=== PATIENT | female | born 1980 | race Caucasian/White ===

== ENCOUNTER 2016-05-01 16:10 | Outpatient (CLI) | payer BC ==
[2014-05-25 19:09] VITALS: BP 172/100
== END 2016-05-01 16:11 ==
LOC: LAB 16:10
PROVIDERS: ATTEND Family Medicine
DX: E03.9 Hypothyroidism, unspecified (principal)
CPT/HCPCS: 36415; 84443

== ENCOUNTER 2016-06-04 16:06 | Emergency (ER) | payer BC ==
[2016-06-04] MEDS ORDERED: KETOROLAC TROMETHAMINE 60 MG/2 ML VIAL IM ONE (16:20)
--- NOTE | 2016-06-04 16:25 | ED Physician Documentation ---
Abdominal Pain - HISTORIAN Historian: patient - HPI Stated Complaint: LLQ pain, right back pain Chief Complaint: Abdominal Pain Additonal Information: 35 yo F here for L sided abdominal pain x3 days. Stats pain is cramping with episodes of sharp pain. Now developed R low back pain, thinks compensatory 2/2 antalgic gait. States L abdomen pain radiates into L lateral thigh and below the knee. H/O PCOS, no other medical probs. No recent illness, fever, chills, n/ v. No change in BM. Urination does increase pain. Does not think she has hematuria, but difficult to tell as she is currently on her period. Appetite is normal. All other systems reviewed and negative except per HPI. Onset: days ago (2) Context: denies: out of country travel Severity: moderate Quality: cramping, sharp Associated Symptoms: denies: fever, chills, nausea, vomiting, coffee ground emesis, bloody emesis, diarrhea, bloody stools Exacerbated by: other (urination, twisting) Relieved by: nothing - ROS CONST: no problems GI/: other (dysuria, abdominal pain) CVS/RESP: none EYES/ENT: none MS/SKIN/LYMPH: none NEURO/PSYCH: none - SOCIAL HX Smoking History: non-smoker Alcohol Use: none Drug Use: none - FAMILY HX Family History: none - PAST HX Past History: other (PCOS) Ischemic Bowel Risk Factors: none Other History: none Surgeries/Procedures: none Immunizations: UTD Home Medications: Ambulatory Orders Medication Instructions Recorded Metformin HCl [Glucophage] 500 mg PO BID 06/04/16 Allergies/Adverse Reactions: Allergies Allergy/AdvReac Type Severity Reaction Status Date / Time tramadol Allergy Verified 06/04/16 16:20 - VITAL SIGNS Vital Signs: Vital Signs Temp Pulse Resp BP Pulse Ox 98.2 F 89 16 136/78 97 06/04/16 17:30 06/04/16 17:30 06/04/16 17:30 06/04/16 17:30 06/04/16 17:30 - REVIEWED ASSESSMENTS Nursing Assessment Reviewed: Yes Vitals Reviewed: Yes ED Results Lab/Radiology - Lab Results Lab Results: Lab Results 06/04/16 16:20 Urine Color Yellow (YELLOW) Urine Appearance Clear (CLEAR) Urine pH 6.0 (5.0 - 8.0) Ur Specific [place] 1.025 (1.010-1.030) Urine Protein Trace mg/dL H mg/dL (NEGATIVE) Urine Ketones Negative mg/dL mg/dL (NEGATIVE) Urine Occult Blood 3+ H (NEGATIVE) Urine Nitrite Negative (NEGATIVE) Urine Bilirubin Negative (NEGATIVE) Urine Urobilinogen 0.2 Eu Eu (0.2-1.0) Ur Leukocyte Esterase Negative (NEGATIVE) Urine Glucose Negative mg/dL mg/dL (NEGATIVE) Urine HCG, Qual Negative (NEGATIVE) - Orders Orders: ED Orders Category Date Time Status CT ABDOMEN ONLY S [CT ABD W/O CONTRAST] Stat Exams 06/04/16 16:32 Completed UA MACRO DIP ONLY Stat Lab 06/04/16 16:20 Completed URINE HCG Stat Lab 06/04/16 16:20 Completed Ketorolac Tromethamine [Toradol] Med 06/04/16 16:20 Discontinued 60 mg IM NOW ONE Abdominal Pain Physical Exam - Physical Exam General Appearance: no acute distress, alert EENT: ENT inspection normal, pharynx normal, no signs of dehydration NECK: normal inspection. No: lymphadenopathy, stiff neck RESPIRATORY: no resp distress, chest non-tender, breath sounds normal CVS: reg rate & rhythm, heart sounds normal, equal pulses, no murmur ABDOMEN: soft, no organomegaly, normal bowel sounds, no abdominal bruit, no distension, tenderness (LLQ, no rebound or guarding. ), other (Morbid obesity) SKIN: warm/dry, normal color EXTREMITIES: non-tender NEURO: oriented X3, CN's nml as tested, motor nml, sensation nml. No: weakness/ sensory loss, asymmetric reflexes Vital Signs: Vital Signs Temp Pulse Resp BP Pulse Ox 98.2 F 89 16 136/78 97 06/04/16 17:30 06/04/16 17:30 06/04/16 17:30 06/04/16 17:30 06/04/16 17:30 Discharge Clincal Impression: Abdominal pain Qualifiers: Abdominal location: left lower quadrant Qualified Code(s): R10.32 - Left lower quadrant pain Referrals: Chiara Joseph MD [Primary Care Provider] - 2 Days Home Medications: Ambulatory Orders Metformin HCl [Glucophage] 500 mg PO BID 06/04/16 Comments: exam non surgical. UA with blood, but on her period, no infection. Hcg neg. CT scan negative for acute. Condition: Good Disposition: HOME, SELF-CARE Decision to Admit: NO Date of Decison to Admit: 06/04/16 Decision Time: 17:21
[2016-06-04 16:51] LABS: APPEARANCE,URINE CLEAR (CLEAR); COLOR,URINE YELLOW (YELLOW); OCCULT BLOOD,URINE 3+ (NEGATIVE); UROBILINOGEN URINE 0.2 Eu (0.2-1.0)
[2016-06-04 17:43] VITALS: BP 136/78
--- NOTE | 2016-06-04 19:12 | Diagnostic Imaging Report ---
SARA MAGUIRE [facility] [id number] [facility] [address] [place], [place]. [address] Report Submission Date: Jun 04, 2016 5:02:46 PM REGIONAL DIRECTOR Patient Study Name: TREVOR SALGADO Date: Jun 04, 2016 4:43:32 PM REGIONAL DIRECTOR Modality Type: CT\SR Gender: F Description: CT ABD & PELVIS W/O CO : 76 Institution: [facility] Physician: SARA MAGUIRE CT of the abdomen and pelvis without contrast Clinical history: Left-sided abdominal pain radiating to the back. Technique: CT of the abdomen and pelvis is performed without oral or intravenous administration of contrast. Sagittal and coronal reconstructions are performed by the technologist. Findings: The visualized lung bases are clear. The liver and spleen demonstrate normal attenuation without focal defect. The gallbladder is surgically absent. There is no pancreatic or adrenal abnormality. Intrarenal calculus is demonstrated in the upper pole of the left kidney. There is no evident ureteral or bladder calculus. There is no hydronephrosis. Retroaortic left renal vein is incidentally noted. Small umbilical hernia is present containing only fat. The appendix is visualized and is within normal limits. The structures related to the gastrointestinal tract are unremarkable. Small ovarian follicles are demonstrated. The uterus is unremarkable. Impression: 1. Left intrarenal calculus. 2. Small umbilical hernia containing only fat. 3. Negative appendix. 4. Postoperative changes. Electronically signed on Jun 04, 2016 5:02:46 PM REGIONAL DIRECTOR by: Ranjeet HERNADEZ
== END 2016-06-04 17:30 | disposition home or self-care (01) ==
LOC: ED 16:06
DX: R10.32 Left lower quadrant pain (principal)
CPT/HCPCS: 74150; 81002; 81025; J1885; 96372; 99283; 99284

== ENCOUNTER 2016-08-04 04:29 | Emergency (ER) | payer BC, OTHER ==
[2016-08-04] MEDS ORDERED: ONDANSETRON HCL/PF 4 MG/ 2ML VIAL IVP ONE (05:19)
[2016-08-04] MEDS ORDERED: ONDANSETRON HCL/PF 4 MG/ 2ML VIAL ONE (05:20)
--- NOTE | 2016-08-04 05:22 | ED Physician Documentation ---
Abdominal Pain - HISTORIAN Historian: patient - HPI Stated Complaint: LLQ pain Chief Complaint: Abdominal Pain Additonal Information: Awakened at 0300 with LLQ pain "twisting" and sharp. Pain made her feel she needed to urinate, but didn't get better when she had. She vomited because pain was so severe. Last normal bowel movement yesterday. Onset: minutes Context: denies: out of country travel Quality: sharp, stabbing Associated Symptoms: denies: fever Exacerbated by: nothing Relieved by: nothing - ROS CONST: no problems - SOCIAL HX Smoking History: non-smoker - FAMILY HX Family History: no significant history - PAST HX Past History: other (PCOS, on med for "mood stabilization") Surgeries/Procedures: cholecystectomy Home Medications: Ambulatory Orders Medication Instructions Recorded Metformin HCl [Glucophage] 500 mg PO BID 06/04/16 Nitrofurantoin Monohyd/M-Cryst 100 mg PO Q12 #14 capsule 08/04/16 [Macrobid] Allergies/Adverse Reactions: Allergies Allergy/AdvReac Type Severity Reaction Status Date / Time tramadol Allergy Verified 08/04/16 04:38 - VITAL SIGNS Vital Signs: Vital Signs Temp Pulse Resp BP Pulse Ox 98.0 F 79 16 156/97 99 08/04/16 04:35 08/04/16 04:35 08/04/16 04:35 08/04/16 04:35 08/04/16 04:35 - REVIEWED ASSESSMENTS Nursing Assessment Reviewed: Yes Vitals Reviewed: Yes Progress - Progress Progress: HISTORY: 35-year-old female with left lower quadrant abdominal pain. COMPARISON: None available. TECHNIQUE: Supine and upright views of the abdomen were performed. FINDINGS: No abnormal bowel dilatation. Gas is present in the distal colon. The upright film does not demonstrate pathologic-appearing air-fluid levels or free air under the diaphragm. No abnormal calcifications are identified overlying the urinary tract. There are surgical clips in the right upper quadrant, consistent with prior cholecystectomy. There is mild to moderate lumbar degenerative disc disease. There is mild joint space narrowing of the hips. IMPRESSION: No evidence of bowel obstruction. Electronically signed on Aug 04, 2016 5:45:43 AM CDT by: Nomi Benedict ED Results Lab/Radiology - Lab Results Lab Results: Lab Results 08/04/16 05:20 WBC 8.00 K/ul K/ul (4.00-12.00) RBC 4.60 M/ul M/ul (3.90-5.20) Hgb 11.7 g/dL L g/dL (12.0-16.0) Hct 37.9 % % (34.5-46.5) MCV 82.5 fl fl (80.0-100.0) MCH 25.4 pg L pg (28.0-34.0) MCHC 30.8 g/dL g/dL (30.0-36.0) RDW 15.3 % H % (11.3-14.3) Plt Count 385 K/mm3 K/mm3 (130-400) Neut % (Auto) 67.4 % % (39.0-79.0) Lymph % (Auto) 23.4 % % (16.0-50.0) [place] % (Auto) 4.2 % % (0.0-11.0) Eos % (Auto) 2.6 % % (0.0-6.8) Baso % (Auto) 0.8 (0.0-1.5) Neut # 5.4 # k/uL # k/uL (1.4-7.7) Lymph # 1.9 # k/uL # k/uL (0.6-4.0) [place] # 0.3 # k/uL # k/uL (0.0-0.9) Eos # 0.2 # k/uL # k/uL (0.0-0.6) Baso # 0.1 # k/uL # k/uL (0.0-0.5) Reactive Lymphs % 1.7 % % (0.0-5.0) Reactive Lymphs # 0.1 # k/uL # k/uL (0.0-0.8) - Orders Orders: ED Orders Category Date Time Status Place Saline Lock/IV Now Care 08/04/16 05:19 Active ABDOMEN COMPLETE [RAD] Stat Exams 08/04/16 Taken AMYLASE Routine Lab 08/04/16 05:20 Received CBC/PLATELET/DIFF Routine Lab 08/04/16 05:20 Completed CMP Routine Lab 08/04/16 05:20 Received URINE HCG Stat Lab 08/04/16 Uncollected Ketorolac Tromethamine [Toradol] Med 08/04/16 05:24 Discontinued 30 mg IVP NOW ONE Nitrofurantoin Monohyd/M-Cryst [Macrobid] Med 08/04/16 05:42 Once 100 mg PO NOW ONE Ondansetron HCl/Pf [Zofran 4 mg/2 ml] Med 08/04/16 05:20 Discontinued 4 mg .ROUTE .STK-MED ONE Ondansetron HCl/Pf [Zofran 4 mg/2 ml] Med 08/04/16 05:19 Discontinued 4 mg IVP NOW ONE Abdominal Pain Physical Exam - Physical Exam General Appearance: alert, mild distress, other (obese) EENT: eye inspection normal, ENT inspection normal NECK: normal inspection, supple RESPIRATORY: no resp distress, breath sounds normal CVS: reg rate & rhythm, heart sounds normal, no murmur ABDOMEN: soft, normal bowel sounds, no distension, other (grimaces equally throughout abd exam) RECTAL: deferred BACK: normal inspection, no CVA tenderness SKIN: warm/dry, normal color EXTREMITIES: no evidence of injury, no edema NEURO: CN's nml as tested, motor nml, sensation nml Vital Signs: Vital Signs Temp Pulse Resp BP Pulse Ox 98.0 F 79 16 156/97 99 08/04/16 04:35 08/04/16 04:35 08/04/16 04:35 08/04/16 04:35 08/04/16 04:35 Discharge Clincal Impression: urinary tract infection Prescriptions: Nitrofurantoin Monohyd/M-Cryst [Macrobid] 100 mg PO Q12 #14 capsule Additional Instructions: Take all the antibiotics as prescribed until they are completely gone. See your provider if your pain is not better in 24-36 hours. Drink plenty of water. Home Medications: Ambulatory Orders Metformin HCl [Glucophage] 500 mg PO BID 06/04/16 Nitrofurantoin Monohyd/M-Cryst [Macrobid] 100 mg PO Q12 #14 capsule 08/04/16 Condition: Good Disposition: 01 HOME, SELF-CARE Decision to Admit: NO Decision Time: 05:48
[2016-08-04] MEDS ORDERED: KETOROLAC TROMETHAMINE 30 MG/1ML VIAL IVP ONE (05:24)
[2016-08-04 05:33] LABS: BASOPHILS % 0.8 (0.0-1.5); EOSINOPHILS % 2.6 % (0.0-6.8); MEAN CORPUSCULAR HEMOGLOBIN 25.4 pg (28.0-34.0); MEAN CORPUSCULAR VOLUME 82.5 fl (80.0-100.0); MONOCYTES % 4.2 % (0.0-11.0); NEUTROPHILS # 5.4 # k/uL (1.4-7.7)
[2016-08-04] MEDS ORDERED: NITROFURANTOIN 100 MG CAPSULE PO ONE (05:42)
[2016-08-04 05:52] LABS: APPEARANCE,URINE CLOUDY (CLEAR); COLOR,URINE YELLOW (YELLOW); OCCULT BLOOD,URINE 2+ (NEGATIVE); URINE HCG NEGATIVE (NEGATIVE); UROBILINOGEN URINE 0.2 Eu (0.2-1.0)
[2016-08-04 05:58] LABS: eGFR (African) > 60; eGFR (Non-African) > 60
[2016-08-04 06:07] VITALS: BP 142/92
--- NOTE | 2016-08-04 07:00 | Diagnostic Imaging Report ---
FELI SANCHEZ [facility] [address] [facility] [address] [place] [address]. [address] Report Submission Date: Aug 04, 2016 5:45:43 AM CDT Patient Study Name: TREVOR SALGADO Date: Aug 04, 2016 5:29:07 AM CDT Modality Type: CR Gender: F Description: ABDOMEN : 76 Institution: [facility] Physician: FELI SANCHEZ HISTORY: 35-year-old female with left lower quadrant abdominal pain. COMPARISON: None available. TECHNIQUE: Supine and upright views of the abdomen were performed. FINDINGS: No abnormal bowel dilatation. Gas is present in the distal colon. The upright film does not demonstrate pathologic-appearing air-fluid levels or free air under the diaphragm. No abnormal calcifications are identified overlying the urinary tract. There are surgical clips in the right upper quadrant, consistent with prior cholecystectomy. There is mild to moderate lumbar degenerative disc disease. There is mild joint space narrowing of the hips. IMPRESSION: No evidence of bowel obstruction. Electronically signed on Aug 04, 2016 5:45:43 AM CDT by: Nomi HERNADEZ
== END 2016-08-04 06:00 | disposition home or self-care (01) ==
LOC: ED 04:29
DX: N39.0 Urinary tract infection, site not specified (principal)
CPT/HCPCS: 74020; 80053; 81002; 81025; 82150; 85025; 87086; J1885; J2405; 96374; 96375; 99283; S1016

== ENCOUNTER 2016-08-05 13:25 | Emergency (ER) | payer BC ==
--- NOTE | 2016-08-05 14:00 | ED Physician Documentation ---
General Adult - HISTORIAN Historian: patient - HPI Stated Complaint: UROGEN Chief Complaint: Abdominal Pain Timing: still present, worse Severity: moderate Further Comments: yes (Patient states that she started to have some LLQ abd pain. Was seen i [facility] ED and felt to have a UTI. Was started on MacroBid. Since starting the antinbiotic she has started to have some nausea and vomiting. Not able to keep anything down. Feels full. Has not been having a lot of urinary frequency or urgency, is having some mild dysuria. Has had some chills but no fever. Denies chance of .) - ROS CONST: chills. denies: fever - PAST HX Past History: other (polycystic ovarian disorder) Other History: none Surgeries/Procedures: cholecystectomy (2002) Immunizations: referred to PCP Allergies/Adverse Reactions: Allergies Allergy/AdvReac Type Severity Reaction Status Date / Time tramadol Allergy Verified 08/05/16 13:42 Home Medications: Ambulatory Orders Medication Instructions Recorded Metformin HCl [Glucophage] 500 mg PO BID 06/04/16 Nitrofurantoin Monohyd/M-Cryst 100 mg PO Q12 #14 capsule 08/04/16 [Macrobid] HYDROcodone /APAP 5/325 [[place] 1 each PO Q4 #15 tablet 08/05/16 5/325] Tamsulosin HCl [Flomax] 0.4 mg PO [id number] #7 cap.er.24h 08/05/16 - SOCIAL HX Smoking History: non-smoker Alcohol Use: none Drug Use: none - FAMILY HX Family History: No - VITAL SIGNS Vital Signs: Vital Signs Temp Pulse Resp BP Pulse Ox 96.6 F L 93 H 20 137/86 99 08/05/16 13:34 08/05/16 13:34 08/05/16 13:34 08/05/16 13:34 08/05/16 13:34 - REVIEWED ASSESSMENTS Nursing Assessment Reviewed: Yes Vitals Reviewed: Yes ED Results Lab/Radiology - Orders Orders: ED Orders Category Date Time Status URINALYSIS Routine Lab 08/05/16 Uncollected General Adult Physical Exam - PHYSICAL EXAM GENERAL APPEARANCE: mild distress EENT: eye inspection normal, ENT inspection normal, pharynx normal, no signs of dehydration NECK: normal inspection, thyroid normal, supple. No: lymphadenopathy RESPIRATORY: no resp distress, chest non-tender, breath sounds normal. No: wheezes, rales, rhonchi CVS: reg rate & rhythm, heart sounds normal, equal pulses, no murmur, no gallop ABDOMEN: soft (obese), no organomegaly, no distension, tenderness (most marked in LUQ, but some in LLQ also), decreased BS. No: rebound, distended, guarding SKIN: warm/dry, normal color EXTREMITIES: non-tender, normal range of motion NEURO: oriented X3, mood/affect nml, cognition normal Discharge Clincal Impression: Kidney stone on left side Referrals: Chiara Joseph MD [Primary Care Provider] - 2 Days Additional Instructions: Drink a lot of fluids. Take Tamsulosin once a day for one week. Strain your urine for the next 4-5 days. If you develop any fever or chills to see your primary care provider to return to the ED. Home Medications: Ambulatory Orders Metformin HCl [Glucophage] 500 mg PO BID 06/04/16 Nitrofurantoin Monohyd/M-Cryst [Macrobid] 100 mg PO Q12 #14 capsule 08/04/16 HYDROcodone /APAP 5/325 [[place] 5/325] 1 each PO Q4 #15 tablet 08/05/16 Tamsulosin HCl [Flomax] 0.4 mg PO [id number] #7 cap.er.24h 08/05/16 Condition: Stable Disposition: 01 HOME, SELF-CARE Decision to Admit: NO Date of Decison to Admit: 08/05/16 Decision Time: 16:43
[2016-08-05] MEDS ORDERED: ONDANSETRON HCL/PF 4 MG/ 2ML VIAL IVP ONE (14:08)
[2016-08-05] MEDS ORDERED: KETOROLAC TROMETHAMINE 30 MG/1ML VIAL IVP ONE (14:09)
[2016-08-05] MEDS ORDERED: 0.9 % SODIUM CHLORIDE 1,000 ML IV ONE (14:12)
[2016-08-05 14:15] LABS: APPEARANCE,URINE Slightly Cloudy (CLEAR); COLOR,URINE Yellow (YELLOW); OCCULT BLOOD,URINE 2+ (NEGATIVE); UROBILINOGEN URINE 0.2 Eu (0.2-1.0)
[2016-08-05 14:22] LABS: AMORPHOUS SEDIMENT,UR FEW (NEGATIVE)
[2016-08-05] MEDS ORDERED: 0.9 % SODIUM CHLORIDE 1,000 ML IV SCH (14:30)
[2016-08-05 14:31] LABS: BASOPHILS % 0.4 (0.0-1.5); EOSINOPHILS % 0.5 % (0.0-6.8); MEAN CORPUSCULAR HEMOGLOBIN 25.5 pg (28.0-34.0); MEAN CORPUSCULAR VOLUME 81.4 fl (80.0-100.0); MONOCYTES % 3.8 % (0.0-11.0); NEUTROPHILS # 8.5 # k/uL (1.4-7.7)
[2016-08-05 14:47] LABS: eGFR (African) > 60; eGFR (Non-African) > 60
[2016-08-05 15:45] VITALS: BP 122/76
--- NOTE | 2016-08-05 16:17 | Diagnostic Imaging Report ---
[facility] [address] [facility].[address] [address] Report Submission Date: Aug 05, 2016 4:14:01 PM CDT Patient Study Name: TREVOR SALGADO Date: Aug 05, 2016 3:52:16 PM CDT Modality Type: CT\SR Gender: F Description: CT ABD & PELVIS W/ CON : 76 Institution: [facility] Physician: AYAN OLSON Computed tomography of the abdomen and pelvis with contrast History: Left abdominal pain and vomiting Findings: Transverse abdomen and pelvis sections are obtained after oral and intravenous omnipaque 350. Comparison is made with the June 04, 2016 scan. Cholecystectomy, mild left hydronephrosis, and 2 mm left ureteropelvic junction stone are observed. The right kidney, liver, pancreas, adrenals, spleen, great vessels, and mesenteric structures are normal. Bowel loops exhibit normal caliber and wall thickness. The appendix is normal. A small umbilical hernia contains omentum. Pelvic sections reveal a few descending colon diverticula and unremarkable urinary bladder. Uterus and ovaries are normal in size. Impression: 1. 2 mm left ureteropelvic junction stone with mild obstructive uropathy. 2. Small umbilical hernia. 3. Normal appendix. 4. Cholecystectomy. 5. Mild left colonic diverticulosis. Electronically signed on Aug 05, 2016 4:14:01 PM CDT by: Jayce HERNADEZ
[2016-08-05] MEDS ORDERED: TAMSULOSIN HCL 0.4 MG CAP.ER.24H PO ONE (16:25)
== END 2016-08-05 16:51 | disposition home or self-care (01) ==
LOC: ED 13:25
DX: N20.0 Calculus of kidney (principal)
CPT/HCPCS: 74177; 80053; 81002; 82150; 85025; J1885; J2405; J7030; Q9966; 96361; 96374; 96375; 99284; S1016

== ENCOUNTER 2016-08-10 22:14 | Emergency (ER) | payer BC ==
[2016-08-10] MEDS ORDERED: KETOROLAC TROMETHAMINE 60 MG/2 ML VIAL IM ONE (22:40)
[2016-08-10] MEDS ORDERED: HYDROmorphone HCL/PF 1 MG/ML DISP.SYRIN IM ONE (22:41)
--- NOTE | 2016-08-10 22:48 | ED Physician Documentation ---
Abdominal Pain - HISTORIAN Historian: patient, parent - HPI Stated Complaint: LLQ pain Chief Complaint: Abdominal Pain Onset: days ago (7 days ) Duration: worse Timing: worse Context: denies: out of country travel, bad food, recent trauma Severity: severe Quality: pain (LLQ) Associated Symptoms: diarrhea, loss of appetite. denies: fever, chills, nausea , vomiting, coffee ground emesis, bloody emesis, bloody stools, grossly bloody stools, mucous, sweating, chest pain, testicular pain, back pain, neck pain Exacerbated by: nothing Relieved by: nothing Further Comments: yes (35 year old female patient brought in by her neighbor with complaints of Left lower quadrant pain. Patient states she took 1 tab of hydrocodone at 1930, pain has not improved, rates 12/28. Patient reports being seen in ER on 08/04 and 08/05. States she has not gotten any relief from her pain. Reports diarrhea x 7 days.) - ROS CONST: recent illness ( Seen in ER 08/04 and 08/05) GI/: constipation (and diarrhea; chronic) CVS/RESP: none EYES/ENT: none MS/SKIN/LYMPH: none NEURO/PSYCH: none - SOCIAL HX Smoking History: cigarettes - FAMILY HX Family History: none - PAST HX Past History: kidney stones (Left UVJ 08/05/2016 diagnosed. ), other (PCOS) Home Medications: Ambulatory Orders Medication Instructions Recorded Metformin HCl [Glucophage] 500 mg PO BID 06/04/16 HYDROcodone /APAP 5/325 [[place] 1 each PO Q4 #15 tablet 08/05/16 5/325] Ondansetron HCl Rapdis [Zofran Odt] 4 mg PO Q8 PRN #10 tab 08/05/16 Tamsulosin HCl [Flomax] 0.4 mg PO [id number] #7 cap.er.24h 08/05/16 Allergies/Adverse Reactions: Allergies Allergy/AdvReac Type Severity Reaction Status Date / Time tramadol Allergy Verified 08/10/16 22:23 - VITAL SIGNS Vital Signs: Vital Signs Temp Pulse Resp BP Pulse Ox 98.2 F 64 16 136/86 98 08/10/16 23:55 08/10/16 23:55 08/10/16 23:55 08/10/16 23:55 08/10/16 23:55 - REVIEWED ASSESSMENTS Nursing Assessment Reviewed: Yes Vitals Reviewed: Yes Progress - Progress Progress: Old records reviewed. 2245 Will recheck lab and medicate for pain. 2345 Patient rates pain 3/10, states she feels much better. Reviewed lab results with patient. Will not rescan at this time. Reviewed signs and symptoms to return to Er. Questions answered and discharge instructions discussed. ED Results Lab/Radiology - Lab Results Lab Results: Lab Results 08/10/16 08/10/16 22:47 22:47 WBC 10.20 K/ul K/ul (4.00-12.00) RBC 4.61 M/ul M/ul (3.90-5.20) Hgb 11.8 g/dL L g/dL (12.0-16.0) Hct 37.7 % % (34.5-46.5) MCV 81.8 fl fl (80.0-100.0) MCH 25.5 pg L pg (28.0-34.0) MCHC 31.1 g/dL g/dL (30.0-36.0) RDW 15.3 % H % (11.3-14.3) Plt Count 449 K/mm3 H K/mm3 (130-400) Neut % (Auto) 73.5 % % (39.0-79.0) Lymph % (Auto) 18.4 % % (16.0-50.0) [place] % (Auto) 3.8 % % (0.0-11.0) Eos % (Auto) 1.8 % % (0.0-6.8) Baso % (Auto) 0.7 (0.0-1.5) Neut # 7.5 # k/uL # k/uL (1.4-7.7) Lymph # 1.9 # k/uL # k/uL (0.6-4.0) [place] # 0.4 # k/uL # k/uL (0.0-0.9) Eos # 0.2 # k/uL # k/uL (0.0-0.6) Baso # 0.1 # k/uL # k/uL (0.0-0.5) Reactive Lymphs % 1.7 % % (0.0-5.0) Reactive Lymphs # 0.2 # k/uL # k/uL (0.0-0.8) Sodium 142 mmol/L mmol/L (136-145) Potassium 3.4 mmol/L L mmol/L (3.5-5.0) Chloride 100 mmol/L mmol/L (98-110) Carbon Dioxide 34 mmol/L H mmol/L (20-32) BUN 7 mg/dL L mg/dL (10-26) Creatinine 0.7 mg/dL mg/dL (0.4-1.5) Estimated Creat Clear 264 Est GFR ( Amer) > 60 (60 - ) Est GFR (Non-Af Amer) > 60 (60 - ) Glucose 108 mg/dL H mg/dL (70-99) Calcium 9.6 mg/dL mg/dL (8.5-10.5) Total Bilirubin 0.2 mg/dL mg/dL (0.2-1.2) AST 16 U/L U/L (0-41) ALT 24 U/L U/L (0-45) Alkaline Phosphatase 81 U/L U/L (46-116) Total Protein 7.2 g/dL g/dL (6.0-8.5) Albumin 4.1 g/dL g/dL (3.0-5.5) - Orders Orders: ED Orders Category Date Time Status CBC/PLATELET/DIFF Stat Lab 08/10/16 22:47 Completed CMP Stat Lab 08/10/16 22:47 Completed HYDROmorphone HCL/PF [Dilaudid] Med 08/10/16 22:41 Discontinued 1 mg IM NOW ONE Ketorolac Tromethamine [Toradol] Med 08/10/16 22:40 Discontinued 60 mg IM NOW ONE Abdominal Pain Physical Exam - Physical Exam General Appearance: moderate distress EENT: eye inspection normal, JERI RESPIRATORY: no resp distress, chest non-tender, breath sounds normal CVS: reg rate & rhythm, heart sounds normal, equal pulses, no murmur, no gallop , PMI nml, no JVD, no friction rub, 24 ABDOMEN: soft, no organomegaly, normal bowel sounds, no abdominal bruit, no distension, tenderness (LLQ) SKIN: normal color, warm/dry, NR, INT, PAL, DR EXTREMITIES: non-tender, normal range of motion, no evidence of injury, no edema , J, [employer] NEURO: oriented X3, CN's nml as tested, motor nml, sensation nml Vital Signs: Vital Signs Temp Pulse Resp BP Pulse Ox 98.2 F 64 16 136/86 98 08/10/16 23:55 08/10/16 23:55 08/10/16 23:55 08/10/16 23:55 08/10/16 23:55 Discharge Clincal Impression: LLQ pain Referrals: Chiara Joseph MD [Primary Care Provider] - 2 Days Home Medications: Ambulatory Orders Metformin HCl [Glucophage] 500 mg PO BID 06/04/16 HYDROcodone /APAP 5/325 [[place] 5/325] 1 each PO Q4 #15 tablet 08/05/16 Ondansetron HCl Rapdis [Zofran Odt] 4 mg PO Q8 PRN #10 tab 08/05/16 Tamsulosin HCl [Flomax] 0.4 mg PO [id number] #7 cap.er.24h 08/05/16 Condition: Stable Disposition: 01 HOME, SELF-CARE Decision to Admit: NO Decision Time: 23:45
[2016-08-10 22:59] LABS: BASOPHILS % 0.7 (0.0-1.5); EOSINOPHILS % 1.8 % (0.0-6.8); MEAN CORPUSCULAR HEMOGLOBIN 25.5 pg (28.0-34.0); MEAN CORPUSCULAR VOLUME 81.8 fl (80.0-100.0); MONOCYTES % 3.8 % (0.0-11.0); NEUTROPHILS # 7.5 # k/uL (1.4-7.7)
[2016-08-10 23:04] LABS: eGFR (African) > 60; eGFR (Non-African) > 60
[2016-08-11 00:02] VITALS: BP 136/86
== END 2016-08-10 23:55 | disposition home or self-care (01) ==
LOC: ED 22:14
DX: R10.32 Left lower quadrant pain (principal)
CPT/HCPCS: 80053; 85025; J1170; J1885; 96372; 99283

== ENCOUNTER 2016-11-25 10:28 | Outpatient (CLI) | payer BC, OTHER ==
[2016-08-11 00:02] VITALS: BP 136/86
== END 2016-11-25 10:30 ==
LOC: LAB 10:28
PROVIDERS: ATTEND Physician Assistant
DX: Z32.01 Encounter for pregnancy test, result positive (principal)
CPT/HCPCS: 36415; 84702

== ENCOUNTER 2017-09-22 09:52 | Outpatient (CLI) | payer BC, OTHER ==
[2016-08-11 00:02] VITALS: BP 136/86
== END 2017-09-22 09:53 ==
LOC: LAB 09:52
PROVIDERS: ATTEND Family Medicine
DX: Z86.32 Personal history of gestational diabetes (principal)
CPT/HCPCS: 36415; 83036

== ENCOUNTER 2018-03-22 07:05 | Emergency (ER) | payer BC ==
[2018-03-22] MEDS ORDERED: LIDOCAINE HCL 1% PF 50MG/5ML AMP (IM/SUTURE/PAIN CLINIC) IJ ONE (07:10)
[2018-03-22] MEDS ORDERED: DIPH,PERTUSS(ACELL),TET VAC/PF 0.5 ML DISP.SYRIN IM ONE (07:26)
--- NOTE | 2018-03-22 07:26 | ED Physician Documentation ---
General Adult - HISTORIAN Historian: patient - HPI Chief Complaint: General Adult Further Comments: yes (37 year old female patient with fish hook in right 5th toe. Stepped on hook [employer]; last tetanus 10 years ago.) - ROS CONST: no problems EYES/ENT: none CVS/RESP: none GI/: none MS/SKIN/LYMPH: none NEURO/PSYCH: denies: headache - PAST HX Past History: none Immunizations: tetanus (given in Er today) Allergies/Adverse Reactions: Allergies Allergy/AdvReac Type Severity Reaction Status Date / Time tramadol Allergy Verified 03/22/18 07:37 Home Medications: Ambulatory Orders Medication Instructions Recorded NK 03/22/18 - SOCIAL HX Smoking History: cigarettes - FAMILY HX Family History: No - VITAL SIGNS Vital Signs: Vital Signs Temp Pulse Resp BP Pulse Ox 136/86 08/10/16 23:55 - REVIEWED ASSESSMENTS Nursing Assessment Reviewed: Yes Vitals Reviewed: Yes Progress - Progress Progress: Large, thick metal hook. Wound cleaned with chlorhexidine and NS; anesthetized with digial block to toe using Lidocaine 1% - patient tolerated well. Irrigated with 200cc NS 3mm incision to puncture wound; hook removed; wound cleaned and irrigated. No bleeding. Patient tolerated procedure well; reviewed discharge instructions - verbalized understanding. ED Results Lab/Radiology - Orders Orders: ED Orders Category Date Time Status Apply/change dressing NOW Care 03/22/18 07:23 Ordered Cleanse with NS and Chlorhexid 1T Care 03/22/18 07:23 Ordered Lidocaine 1% 5ml(IM or SUTURE) [Xylocaine] Med 03/22/18 07:10 Discontinued 50 mg IJ NOW ONE General Adult Physical Exam - PHYSICAL EXAM GENERAL APPEARANCE: mild distress EENT: eye inspection normal RESPIRATORY: no resp distress CVS: reg rate & rhythm SKIN: warm/dry, normal color, other (fish hook in distal soft tissue end of 5th right toe) EXTREMITIES: non-tender, normal range of motion, no evidence of injury, no edema, J, 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 Follow up with primary care if you develop redness, drainage from wound, warmth, or red streaks up the foot. Condition: Stable Disposition: 01 HOME, SELF-CARE Decision to Admit: NO Decision Time: 07:25
[2018-03-22 07:45] VITALS: BP 140/80
== END 2018-03-22 07:38 | disposition home or self-care (01) ==
LOC: ED 07:05
DX: S91.144A Puncture wound with foreign body of right lesser toe(s) without damage to nail, initial encounter (principal); W26.8XXA Contact with other sharp object(s), not elsewhere classified, initial encounter
CPT/HCPCS: 10120; 90471; 90715; 99282

== ENCOUNTER 2018-07-23 14:36 | Outpatient (CLI) | payer BC ==
--- NOTE | 2018-07-23 19:13 | Diagnostic Imaging Report ---
AYAN OLSON [facility] [address] [facility] [address] [address] Report Submission Date: Jul 23, 2018 4:35:16 PM CDT Patient Study Name: ASTRID CROSS Date: Jul 23, 2018 3:53:03 PM CDT Modality Type: DX Gender: F Description: SHOULDER 2 VIEWS OR MORE : [birth year] Institution: [facility] Physician: AYAN OLSON Examination: Plain film left shoulder History: Fall Comparison exams: None provided Findings: 4 views of the left shoulder demonstrates articular degenerative changes. No evidence for fracture or dislocation. No soft tissue abnormality. Impression: Articular degenerative changes. No fracture Electronically signed on Jul 23, 2018 4:35:16 PM CDT by: Duy HERNADEZ
--- NOTE | 2018-07-23 19:15 | Diagnostic Imaging Report ---
NAOMI MCCULLOUGH [facility] [address] [facility] [address] [address] Report Submission Date: Jul 23, 2018 3:05:43 PM CDT Patient Study Name: TREVOR SALGADO Date: Jul 23, 2018 2:44:12 PM CDT Modality Type: DX Gender: F Description: ELBOW 2 VIEWS : [birth year] Institution: [facility] Physician: NAOMI MCCULLOUGH Examination: Plain film left elbow History: PAIN IN LEFT ARM X1 MONTH, WORSE IN THE LAST 2 WEEKS Comparison exams: None provided Findings: 2 views of the left elbow demonstrate normal cortical margins. No fracture. No dislocation. Radial head is within normal limits. No joint effusion Impression: No acute osseous abnormality. Electronically signed on Jul 23, 2018 3:05:43 PM CDT by: Duy HERNADEZ
== END 2018-07-23 14:50 ==
LOC: RAD 14:36
PROVIDERS: ATTEND Nurse Practitioner Family
DX: M24.112 Other articular cartilage disorders, left shoulder (principal); M25.522 Pain in left elbow; M25.612 Stiffness of left shoulder, not elsewhere classified
CPT/HCPCS: 73030; 73070

== ENCOUNTER 2019-04-04 12:44 | Emergency (ER) | payer BC, OTHER ==
--- NOTE | 2019-04-04 12:51 | ED Physician Documentation ---
Chest Pain - HISTORIAN Historian: patient - HPI Stated Complaint: chest pain and shortness of air since this am worse x 1 hour Chief Complaint: Chest Pain Onset: hours (5) Timing: sudden onset Duration: constant, worse Last known Well Date: 04/04/19 Last Known Well Time: 08:00 Context: other (working ) Severity: mild Quality: pressure, aching Chest Pain Radiation: no radiation Chest Pain Signs/Symptoms: denies: nausea, vomiting, diaphoresis, cool extremities, dizziness, dyspnea, tachypnea, tachycardia, hypotension, palpitations Worsened By: nothing Relieved By: nothing Further Comments: yes (she states while at work she notes chest pain and shortness of air. She states over the last hour the pain and shortness of air is increasing. She did not take any OTC med. She has no injury. No radiation of pain or added symptoms. No recent cold or cough. She does not feel short of breath but that it is hard due to the pressure to breathe deep) - ROS CONST: none - PAST HX VA risk factors: no pertinent history Allergies/Adverse Reactions: Allergies Allergy/AdvReac Type Severity Reaction Status Date / Time tramadol Allergy Verified 04/04/19 12:52 Home Medications: Ambulatory Orders Medication Instructions Recorded NK 03/22/18 - SOCIAL HX Smoking History: non-smoker Alcohol Use: none Drug Use: none - FAMILY HX Family HX: none - VITAL SIGNS Vital Signs: Vital Signs Temp Pulse Resp BP Pulse Ox 140/80 03/22/18 07:43 - REVIEWED ASSESSMENTS Nursing Assessment Reviewed: Yes Vitals Reviewed: Yes Progress - Progress Progress: 1344: states she is feeling "better" she is refusing anything for pain DG Chest Pain Physical Exam - EXAM General Appearance: no acute distress, alert EENT: eye inspection normal, no signs of dehydration Neck: nml inspection Respiratory: no resp. distress, chest non-tender, nml breath sounds CVS: reg. rate & rhythm, no murmur Abdomen: soft, normal bowel sounds, non-tender Skin: warm/dry Extremities: non-tender Neuro: oriented X3 Discharge Clincal Impression: Chest pain Qualifiers: Chest pain type: other chest pain Qualified Code(s): R07.89 - Other chest pain; R07.8 - Other chest pain Referrals: Chiara Joseph MD [Primary Care Provider] - 2 Days Comments: 1. OTC meds as directed as needed for symptom management 2. Follow up with PCP for work up 3. Return to ER for any increased concerns Condition: Stable Disposition: 01 HOME, SELF-CARE Decision to Admit: NO Date of Decison to Admit: 04/04/19 Decision Time: 13:46
[2019-04-04] MEDS: ASPIRIN 81 MG CHEW TAB PO ONE (12:55)
--- NOTE | 2019-04-04 13:17 | Diagnostic Imaging Report ---
PATIENT MR#: [id number] PATIENT PATIENT NAME: TREVOR SALGADO DATE OF : 1980 REFERRING PHYSICIAN: Anastacia Johnson EXAM DATE: 04/04/2019 ACCESSION NUMBER: [id number] EXAM DESCRIPTION: CHEST 1VIEW Examination: Portable chest History: Evaluate lungs Comparison exam: None available Findings: Single view of the chest demonstrates a normal cardiac and mediastinal silhouette. Elevated right hemidiaphragm. Lung law without focal infiltrate. No blunting of the costophrenic margins. Osseou s structures are appropriate for age. Impression: No acute pulmonary process. Read by: Dr. Duy Etienne Transcribed by: Transcribed Date: Electronically signed by: Dr. Duy Etienne Date signed: 04/04/2019 1:15:50 PM
[2019-04-04 13:27] LABS: eGFR (Non-African) > 60
[2019-04-04 13:54] VITALS: BP 142/80
[2019-04-04 14:39] LABS: SEGMENTED NEUTROPHILS % 52 % (39-79)
[2019-04-04 14:40] LABS: ANISOCYTOSIS 1+ (NEGATIVE); BASOPHILS % 1 % (0-2)
== END 2019-04-04 13:52 | disposition home or self-care (01) ==
LOC: ED 12:44
DX: R07.89 Other chest pain (principal)
CPT/HCPCS: 80053; 84484; 85025; 93005; S1016